=== PATIENT | female | born 1990 ===

== ENCOUNTER → 2023-08-21 11:37 | Outpatient (REF) | payer BC, SELFPAY | LOC: HWRAD 11:37 | PROVIDERS: ATTENDING PHYSICIAN Nurse Practitioner Family; FAMILY PHYSICIAN Family Medicine | DX: R14.0 Abdominal distension (gaseous) (principal) | CPT/HCPCS: 76700 ==

== ENCOUNTER → 2023-10-26 06:21 | Day surgery (SDC) | payer BC, SELFPAY | LOC: GI 06:21 | PROVIDERS: ATTENDING PHYSICIAN Internal Medicine Gastroenterology | DX: K64.8 Other hemorrhoids (principal); K31.89 Other diseases of stomach and duodenum; R14.0 Abdominal distension (gaseous); R19.7 Diarrhea, unspecified; R19.4 Change in bowel habit | CPT/HCPCS: 45380; 43239; 88305; 88342 ==